=== PATIENT | male | born 1980 | race Caucasian/White ===

== ENCOUNTER 2019-03-29 11:03 | Inpatient (IN) | payer OTHER ==
[2019-03-29 11:28] VITALS: BMI 25.6
--- NOTE | 2019-03-29 12:37 | HP ---
COWS - Scale Resting Pulse: 0= ID 80 or Below Sweatin=Flushed/Facial Moisture Restless Observation: 0= Sits Still Pupil Size: 0= Normal to Room Light Bone or Joint Aches: 2= Severe Diffuse Aches Runny Nose/ Eye Tearin= Nasal Congestion GI Upset > 30mins: 1= Stomach Cramp Tremor Observation: 1= Tremor [place], Not Seen Yawning Observation: 0= None Anxiety or Irritability: 1=Feels Anxious/Irritable Goose Flesh Skin: 0=Smooth Skin COWS Score: 8 CIWA Score - Admission Criteria OASAS Guidelines: Admission for Medically Managed Detox: Requires at least one of the followin. CIWA greater than 12 2. Seizures within the past 24 hours 3. Delirium tremens within the past 24 hours 4. Hallucinations within the past 24 hours 5. Acute intervention needed for co occurring medical disorder 6. Acute intervention needed for co occurring psychiatric disorder 7. Severe withdrawal that cannot be handled at a lower level of care (continued vomiting, continued diarrhea, abnormal vital signs) requiring intravenous medication and/or fluids 8. Admission ROS [facility] Chief Complaint: Nba Waggoner is a 38 year old male presenting for heroin and cocaine detox. Allergies/Adverse Reactions: Allergies Allergy/AdvReac Type Severity Reaction Status Date / Time No Known Allergies Allergy Verified 03/29/19 11:16 History of Present Illness: Nba Waggoner is a 38 year old male presenting for heroin and cocaine detox. Heroin: uses 4 bags a day. Use everyday. Last use was yesterday. Had been using for 2 years, no prior opiate use as per patient. Endorses IVDU. Has had previous abscess on the R forearm that was lanced and treated at [facility], currently on Bactrim, day 2. Had been on methadone program through [facility] for 1 week, 30mg dose. Last confirmed dose was 03/19. Did not wait for appointment to increase dose and started using heroin again. Had one previous overdose and was taken to hospital and given Narcan. Has a Narcan kit at home and has knowledge of how to use it. Withdrawal symptoms: sick, diarrhea, chills , weakness. Cocaine: 1 gram per day. Last use 2 days ago. Has been using for 2 years. Started at the same time. Has never been to detox or rehab in the past. After detox: states may want to go to rehab. States would want to return to methadone maintenance program. Medical History: Hep C (active) Psychiatric: depression, anxiety, schizophrenia Surgical History: lancing of abscess under general anesthesia Meds: Abilify, Celexa, Alprazolam Smoking: former smoker Social: homeless, lives on street, unemployed. 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 Not in contact with family or friends. Last use was recent and not long enough for patient to be undergoing significant withdrawals. Admitted for expected severe withdrawal symptoms. Exam Limitations: No Limitations - Ebola screening Have you traveled outside of the country in the last 21 days: No (NN) Have you had contact with anyone from an Ebola affected area: No Do you have a fever: No - Review of Systems Constitutional: Chills, Diaphoresis, Loss of Appetite EENT: reports: Nose Congestion Respiratory: reports: No Symptoms reported Cardiac: reports: No Symptoms Reported GI: reports: No Symptoms Reported : reports: No Symptoms Reported Musculoskeletal: reports: No Symptoms Reported Integumentary: reports: Other (healing abscess on R forearm) Endocrine: reports: No Symptoms Reported Hematology: reports: No Symptoms Reported Psychiatric: reports: Judgement Intact, Orientated x3, Anxious Patient History - Patient Medical History Hx Anemia: No Hx Asthma: No Hx Chronic Obstructive Pulmonary Disease (COPD): No Hx Cancer: No Hx Cardiac Disorders: No Hx Congestive Heart Failure: No Hx Hypertension: No Hx Hypercholesterolemia: No Hx Pacemaker: No HX Cerebrovascular Accident: No Hx Seizures: No Hx Dementia: No Hx Diabetes: No Hx Gastrointestinal Disorders: No Hx Liver Disease: No Hx Genitourinary Disorders: No Hx Sexually Transmitted Disorders: No Hx Renal Disease (ESRD): No Hx Thyroid Disease: No Hx Human Immunodeficiency Virus (HIV): No Hx Hepatitis C: Yes (untreated) Hx Depression: Yes Hx Suicide Attempt: No Hx Bipolar Disorder: No Hx Schizophrenia: Yes - Patient Surgical History Hx Neurologic Surgery: No Hx Cataract Extraction: No Hx Cardiac Surgery: No Hx Lung Surgery: No Hx Breast Surgery: No Hx Breast Biopsy: No Hx Abdominal Surgery: No Hx Appendectomy: No Hx Cholecystectomy: No Hx Genitourinary Surgery: No Hx Section: No Hx Orthopedic Surgery: No Hx Hysterectomy: No Other Surgical History: lancing of abscess on R forearm under general anesthesia - PPD History Previous Implant?: No Implanted On Prior R Admission?: No PPD to be Administered?: Yes - Smoking Cessation Smoking history: Former smoker Have you smoked in the past 12 months: No Initiated information on smoking cessation: No - Substance & Tx. History Hx Alcohol Use: No Hx Substance Use: Yes Substance Use Type: Cocaine, Heroin - Substances abused Heroin Substance route: Injection Frequency: Daily Amount used: 3-4 bags Age of first use: 36 Date of last use: 03/29/19 Cocaine Substance route: Injection Frequency: Daily Amount used: 1 gram Date of last use: 03/27/19 Admission Physical Exam [facility] - Vital Signs Vital Signs: Vital Signs - 24 hr 03/29/19 11:20 Temperature 97.0 F L Pulse Rate 77 Respiratory 20 Rate Blood Pressure 142/88 - Physical General Appearance: Yes: Nourished, Disheveled, Mild Distress HEENTM: Yes: EOMI, Normocephalic, Normal Voice, DINORA, Pharynx Normal, Other ( strabismus noted) Respiratory: Yes: Chest Non-Tender, Lungs Clear, Normal Breath Sounds, No Respiratory Distress, No Accessory Muscle Use Neck: Yes: No masses,lesions,Nodules, Trachea in good position Breast: Yes: Breast Exam Deferred Cardiology: Yes: Regular Rhythm, Regular Rate, S1, S2 Abdominal: Yes: Normal Bowel Sounds, Non Tender, Flat, Soft Genitourinary: Yes: Within Normal Limits Back: Yes: Normal Inspection Musculoskeletal: Yes: full range of Motion, Gait Steady Extremities: Yes: Normal Capillary Refill, Normal Inspection, Normal Range of Motion, Non-Tender 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 intact, Fully Oriented, Alert, Motor Strength 5/5, Normal Response Integumentary: Yes: Dry, Warm, Track [place] (noted bilaterally on AC and hand), Other (Noted lanced abscess on R forearm, mild pain to palpation, no expression of fluid, healing) - Diagnostic (1) Heroin abuse Current Visit: Yes Status: Acute (2) Cocaine abuse Current Visit: Yes Status: Acute (3) IVDU (intravenous drug user) Current Visit: Yes Status: Acute (4) Hepatitis C Current Visit: Yes Status: Acute (5) Abscess of forearm, right Current Visit: Yes Status: Acute (6) Methadone use Current Visit: Yes Status: Acute Cleared for Admission [facility] - Detox or Rehab [facility] Level of Care: Medically Managed Detox Regimen/Protocol: Methadone Breathalyzer - Breathalyzer Breathalyzer: 0 Urine Drug Screen - Test Device Lot number: [id number] Expiration date: 11/25/20 - Control Is test valid?: Yes - Results Drug screen NEGATIVE: No Urine drug screen results: EDGARDO-Cocaine, MTD-Methadone Inpatient Rehab Admission - Rehab Decision to Admit Inpatient rehab admission?: No
[2019-03-29] MEDS ORDERED: cloNIDine HCL 0.1 MG TABLET PO PRN (13:38)
[2019-03-29] MEDS ORDERED: BISMUTH SUBSALICYLATE 262 MG/15 ML BTL PO PRN (13:38)
[2019-03-29] MEDS ORDERED: MENTHOL/PHENOL 1 EACH UD MM PRN (13:38)
[2019-03-29] MEDS ORDERED: IBUPROFEN 400 MG TABLET (FP) PO PRN ×2 (13:38)
[2019-03-29] MEDS ORDERED: MAGNESIUM CITRATE 300 ML BOTTLE PO PRN (13:38)
[2019-03-29] MEDS ORDERED: MAGNESIUM HYDROX 2400MG/30ML ORAL SUSPENSION 30 ML CUP PO PRN (13:38)
--- NOTE | 2019-03-29 14:46 | PN ---
Teaching Attending Note Name of Resident: David Palomo ATTENDING PHYSICIAN STATEMENT I saw and evaluated the patient. I reviewed the resident's note and discussed the case with the resident. I agree with the resident's findings and plan as documented. SUBJECTIVE: 38 yo with long h/o OUD, with recent IV heroin use, hospitalized for several days for abscess of arm- drained and is on antibiotics. was in a methadone program OBJECTIVE: Vital Signs - 24 hr 03/29/19 11:20 Temperature 97.0 F L Pulse Rate 77 Respiratory 20 Rate Blood Pressure 142/88 tremulous ASSESSMENT AND PLAN: OUD- admit for detox with methadone, pt will need assisted treatment in with MAT
[2019-03-29] MEDS ORDERED: METHADONE HCL 10 MG TABLET (FOR DETOX USE ONLY) PO ONE (15:10)
[2019-03-29 16:55] LABS: HEMATOCRIT 37.9 % (35.4-49); HEMOGLOBIN 12.5 GM/dL (11.7-16.9); MCH 28.4 pg (25.7-33.7); MEAN CELL VOLUME 86.1 fl (80-96); MEAN PLT VOLUME 8.1 fl (7.5-11.1); PLATELET COUNT 389 K/MM3 (134-434); RBC 4.41 M/mm3 (4.00-5.60); RDW 15.8 % (11.9-15.9); WHITE BLOOD COUNT 7.9 K/mm3 (4.0-10.0)
[2019-03-29] MEDS: SULFAMETHOXAZOLE/TRIMETHOPRIM 800MG/160MG D.S. TABLET PO SCH ×2 (17:06→21:57)
[2019-03-29 17:12] LABS: ALBUMIN 3.7 g/dl (3.4-5.0); BLOOD UREA NITROGEN 20.2 mg/dL (7-18); CALCIUM 9.1 mg/dL (8.5-10.1); CREATININE 1.1 mg/dL (0.55-1.3); POTASSIUM 4.9 mmol/L (3.5-5.1); TOT PROT 9.1 g/dl (6.4-8.2)
[2019-03-29 18:18] LABS: SICKLE CELL SCREEN NEGATIVE (NEGATIVE)
[2019-03-29] MEDS: hydrOXYzine PAMOATE 25 MG CAPSULE (FP) PO PRN (21:57)
[2019-03-29] MEDS: THIAMINE HCL 100 MG TABLET (FP) PO SCH (21:57)
[2019-03-29] MEDS: MELATONIN 5 MG TABLETS PO PRN (21:57)
[2019-03-30] MEDS: SULFAMETHOXAZOLE/TRIMETHOPRIM 800MG/160MG D.S. TABLET PO SCH ×3 (05:49→21:56)
[2019-03-30] MEDS: LACTOBACILLUS ACIDOPHILUS 1 TABLET PO SCH (06:23)
[2019-03-30] MEDS ORDERED: METHADONE HCL 10 MG TABLET (FOR DETOX USE ONLY) ONE (08:39)
[2019-03-30] MEDS ORDERED: METHADONE HCL 5 MG TABLET (FOR DETOX USE ONLY) ONE (08:39)
[2019-03-30] MEDS ORDERED: METHADONE (DETOX) 20 MG, METHADONE (DETOX) 5 MG PO ONE (10:00)
[2019-03-30] MEDS: PRENATAL VITAMINS W/ FOLIC ACID TABLET (FP) PO SCH (10:29)
[2019-03-30] MEDS: METHOCARBAMOL 500 MG TABLET PO PRN ×2 (10:30→21:56)
--- NOTE | 2019-03-30 11:42 | CONSULT ---
[facility] Psychiatric Consult - Data Date of interview: 03/30/19 Admission source: [facility] Identifying data: Patient is a 38 year old single male, father of two, unemployed, homeless, and is not receiving financial assistance. This is patient 's first admission to detox at [facility]. Patient admitted to for methadone dependence. Substance Abuse History: - Substance & Tx. History. Hx Alcohol Use: No. Hx Substance Use: Yes. Substance Use Type: Cocaine, Heroin. - Substances abused. Heroin. Substance route: Injection. Frequency: Daily. Amount used: 3-4 bags. Age of first use: 36. Date of last use: 03/29/19. Cocaine. Substance route: Injection. Frequency: Daily. Amount used: 1 gram. Date of last use: 03/27/19 Medical History: Hep C Psychiatric History: Patient's first psychiatric hospitalization was in [place] at 14 years of age after experiencing onset disturbances of auditory/ visual hallucinations. Patient was diagnosed with schizophrenia and treated with psychotropic medications. Mr. Waggoner reports history of cutting which started at 15 years of age after his brother was murdered and he became severely depressed. Patient reports seeing Dr. Kinney throughout his years of psychiatric outpatient care while living in [place] and reports being prescribed abilify 30mg + Celexa 10mg + Xanax 2mg daily. Mr. Waggoner reports additional diagnosis of Depression and personality disorder. Patient then moved to [place] 6 years ago and was continued on abilify 30mg + Celexa 10mg + Xanax 2mg HS. Mr. Waggoner has been living in [facility] for approximately two months. States that he lost his bag which had his psychtropic medications but was resumed on his psychtropic medications while at [facility] for ten days secondary to an abscess to his right forearm. Patient reports last taking his medications yesterday morning. States that he is scheduled to see a psychiatrist at the [facility] on 04/16/19. Patient reports history of self mutilation by cutting but denies a history of suicide attempt. Mr. Waggoner denies auditory/visual hallucinations, suicidal/homicidal ideation. At present he reports stable mood. Physical/Sexual Abuse/Trauma History: denies. Mental Status Exam - Mental Status Exam Alert and Oriented to: Time, Place, Person Cognitive Function: Good Patient Appearance: Well Groomed Mood: Euthymic Affect: Mood Congruent Patient Behavior: Cooperative Speech Pattern: Appropriate Voice Loudness: Normal Thought Process: Goal Oriented Thought Disorder: Not Present Hallucinations: Denies Suicidal Ideation: Denies Homicidal Ideation: Denies Insight/Judgement: Poor Sleep: Poorly Appetite: Fair Muscle strength/Tone: Normal Gait/Station: Normal Psychiatric Findings - Problem List ([place] 1, 2,3) (1) Schizophrenia Status: Chronic (2) Cocaine abuse Status: Acute (3) Heroin abuse Status: Acute (4) Methadone use Status: Acute (5) Substance-induced sleep disorder Status: Acute - Initial Treatment Plan Initial Treatment Plan: Psychoeducation provided. Detoxification in progress. Will order abilify 30mg + Celexa 10mg daily + Benadryl 50mg HS PRN for insomnia. Benefits and side effects discussed. Verbal consent given.
[2019-03-30] MEDS ORDERED: FLU VACCINE QUAD 60 MCG/0.5 ML (MDV 19-20) IM ONE (12:00)
--- NOTE | 2019-03-30 14:29 | EKG ---
Test Reason : Blood Pressure : / mmHG Vent. Rate : 081 BPM Atrial Rate : 081 BPM P-R Int : 154 ms QRS Dur : 090 ms QT Int : 400 ms P-R-T Axes : 043 052 047 degrees QTc Int : 464 ms NORMAL SINUS RHYTHM NORMAL ECG NO PREVIOUS ECGS AVAILABLE Confirmed by BRITTNI RIVERO MD ([id number]) on 03/30/2019 2:29:08 PM Referred By: Confirmed By:BRITTNI RIVERO MD
--- NOTE | 2019-03-30 16:39 | PN ---
BHS COWS - Scale Resting Pulse: 1= [place] 81-100 Sweatin= Chills/Flushing Restless Observation: 1= Difficult to Sit Still Pupil Size: 0= Normal to Room Light Bone or Joint Aches: 2= Severe Diffuse Aches Runny Nose/ Eye Tearin= None GI Upset > 30mins: 0= None Tremor Observation of Outstretched Hands: 2= Slight Tremor Visible Yawning Observation: 1= 1-2x During Session Anxiety or Irritability: 2=Irritable/Anxious Goose Flesh Skin: 3=Piloerection COWS Score: 13 BHS Progress Note (SOAP) Subjective: Sweating, Tremors, Body Aches. Objective: PATIENT A & O X 3, OBSERVED AMBULATING ON DETOX UNIT UNASSISTED. IN NO ACUTE DISTRESS. 03/30/19 16:38 Vital Signs Temperature 97.0 F L 03/30/19 13:10 Pulse Rate 81 03/30/19 13:10 Respiratory Rate 18 03/30/19 13:10 Blood Pressure 106/72 03/30/19 13:10 O2 Sat by Pulse Oximetry (%) Laboratory Tests 03/29/19 03/29/19 03/29/19 14:45 14:45 14:45 WBC 7.9 RBC 4.41 Hgb 12.5 Hct 37.9 MCV 86.1 MCH 28.4 MCHC 33.0 RDW 15.8 Plt Count 389 MPV 8.1 Sickle Cell Screen Negative Sodium 136 Potassium 4.9 Chloride 102 Carbon Dioxide 30 Anion Gap 5 L BUN 20.2 H Creatinine 1.1 Est GFR (CKD-EPI)AfAm 98.18 Est GFR (CKD-EPI)NonAf 84.71 Random Glucose 103 Calcium 9.1 Total Bilirubin 1.0 AST 42 H ALT 54 Alkaline Phosphatase 73 Total Protein 9.1 H Albumin 3.7 RPR Titer Nonreactive LABS NOTED. Assessment: 03/30/19 16:39 WITHDRAWAL SYMPTOMS. ELEVATED AST LEVEL. Plan: CONTINUE DETOX.
[2019-03-30] MEDS ORDERED: diphenhydrAMINE HCL 25 MG CAPSULE (FP) PO ONE (21:23)
[2019-03-30] MEDS: THIAMINE HCL 100 MG TABLET (FP) PO SCH (21:56)
[2019-03-30] MEDS: diphenhydrAMINE HCL 50 MG CAPSULE PO PRN (21:57)
[2019-03-30] MEDS: MAG HYDROX/AL HYDROX/SIMETH 30 ML UNIT-DOSE CUP PO PRN (21:57)
[2019-03-31] MEDS: SULFAMETHOXAZOLE/TRIMETHOPRIM 800MG/160MG D.S. TABLET PO SCH ×3 (05:53→21:07)
[2019-03-31] MEDS: LACTOBACILLUS ACIDOPHILUS 1 TABLET PO SCH (07:49)
[2019-03-31] MEDS ORDERED: METHADONE HCL 10 MG TABLET (FOR DETOX USE ONLY) PO ONE (10:00)
[2019-03-31] MEDS: ARIPiprazole 15 MG TABLET PO SCH (10:15)
[2019-03-31] MEDS: PRENATAL VITAMINS W/ FOLIC ACID TABLET (FP) PO SCH (10:15)
[2019-03-31] MEDS: CITALOPRAM HYDROBROMIDE 10 MG TABLET (FP) PO SCH (10:15)
[2019-03-31] MEDS: MAG HYDROX/AL HYDROX/SIMETH 30 ML UNIT-DOSE CUP PO PRN ×2 (10:17→21:09)
[2019-03-31] MEDS: LIDOCAINE 5% TOPICAL PATCH TP SCH (14:50)
--- NOTE | 2019-03-31 17:58 | PN ---
BHS COWS - Scale Resting Pulse: 1= [place] 81-100 Sweatin= Chills/Flushing Restless Observation: 0= Sits Still Pupil Size: 0= Normal to Room Light Bone or Joint Aches: 2= Severe Diffuse Aches Runny Nose/ Eye Tearin= None GI Upset > 30mins: 0= None Tremor Observation of Outstretched Hands: 2= Slight Tremor Visible Yawning Observation: 1= 1-2x During Session Anxiety or Irritability: 2=Irritable/Anxious Goose Flesh Skin: 0=Smooth Skin COWS Score: 9 BHS Progress Note (SOAP) Subjective: Tremors, Sweating, Body Aches. Objective: PATIENT A & O X 3. IN NO ACUTE DISTRESS. 03/31/19 17:56 Vital Signs Temperature 98.3 F 03/31/19 17:15 Pulse Rate 85 03/31/19 17:15 Respiratory Rate 18 03/31/19 17:15 Blood Pressure 103/65 03/31/19 17:15 O2 Sat by Pulse Oximetry (%) Laboratory Tests 03/29/19 03/29/19 03/29/19 14:45 14:45 14:45 WBC 7.9 RBC 4.41 Hgb 12.5 Hct 37.9 MCV 86.1 MCH 28.4 MCHC 33.0 RDW 15.8 Plt Count 389 MPV 8.1 Sickle Cell Screen Negative Sodium 136 Potassium 4.9 Chloride 102 Carbon Dioxide 30 Anion Gap 5 L BUN 20.2 H Creatinine 1.1 Est GFR (CKD-EPI)AfAm 98.18 Est GFR (CKD-EPI)NonAf 84.71 Random Glucose 103 Calcium 9.1 Total Bilirubin 1.0 AST 42 H ALT 54 Alkaline Phosphatase 73 Total Protein 9.1 H Albumin 3.7 RPR Titer Nonreactive LABS NOTED. Assessment: 03/31/19 17:57 WITHDRAWAL SYMPTOMS. ELEVATED AST LEVEL. Plan: CONTINUE DETOX. INCREASE DAILY PO WATER INTAKE. LIDODERM PATCH FOR LOWER BACK PAIN.
[2019-03-31] MEDS ORDERED: diphenhydrAMINE HCL 25 MG CAPSULE (FP) PO ONE (20:44)
[2019-03-31] MEDS: LIDOCAINE PATCH REMOVAL MC SCH (21:07)
[2019-03-31] MEDS: THIAMINE HCL 100 MG TABLET (FP) PO SCH (21:07)
[2019-03-31] MEDS: diphenhydrAMINE HCL 50 MG CAPSULE PO PRN (21:08)
[2019-04-01] MEDS: SULFAMETHOXAZOLE/TRIMETHOPRIM 800MG/160MG D.S. TABLET PO SCH ×3 (06:41→22:05)
[2019-04-01] MEDS: LACTOBACILLUS ACIDOPHILUS 1 TABLET PO SCH (07:40)
[2019-04-01] MEDS ORDERED: METHADONE HCL 10 MG TABLET (FOR DETOX USE ONLY) ONE (08:27)
[2019-04-01] MEDS ORDERED: METHADONE HCL 5 MG TABLET (FOR DETOX USE ONLY) ONE (08:28)
[2019-04-01] MEDS ORDERED: METHADONE (DETOX) 10 MG, METHADONE (DETOX) 5 MG PO ONE (10:00)
[2019-04-01] MEDS: ARIPiprazole 15 MG TABLET PO SCH (10:32)
[2019-04-01] MEDS: CITALOPRAM HYDROBROMIDE 10 MG TABLET (FP) PO SCH (10:32)
[2019-04-01] MEDS: PRENATAL VITAMINS W/ FOLIC ACID TABLET (FP) PO SCH (10:32)
[2019-04-01] MEDS: METHOCARBAMOL 500 MG TABLET PO PRN ×2 (10:32→23:18)
[2019-04-01] MEDS: LIDOCAINE 5% TOPICAL PATCH TP SCH (10:34)
--- NOTE | 2019-04-01 16:43 | PN ---
BHS COWS - Scale Resting Pulse: 1= [place] 81-100 Sweatin= Chills/Flushing Restless Observation: 1= Difficult to Sit Still Pupil Size: 0= Normal to Room Light Bone or Joint Aches: 2= Severe Diffuse Aches Runny Nose/ Eye Tearin= None GI Upset > 30mins: 0= None Tremor Observation of Outstretched Hands: 0= None Yawning Observation: 1= 1-2x During Session Anxiety or Irritability: 2=Irritable/Anxious Goose Flesh Skin: 0=Smooth Skin COWS Score: 8 BHS Progress Note (SOAP) Subjective: Sweating, Body Aches. Patient reports That Current withdrawal Detox Symptoms in General Are Subsiding in Severity and that he is feeling better. Objective: PATIENT A & O X 3, OBSERVED AMBULATING ON DETOX UNIT UNASSISTED. IN NO ACUTE DISTRESS. 04/01/19 16:44 Vital Signs Temperature 97.0 F L 04/01/19 13:40 Pulse Rate 91 H 04/01/19 13:40 Respiratory Rate 20 04/01/19 13:40 Blood Pressure 95/71 04/01/19 13:40 O2 Sat by Pulse Oximetry (%) Laboratory Tests 03/29/19 03/29/19 03/29/19 14:45 14:45 14:45 WBC 7.9 RBC 4.41 Hgb 12.5 Hct 37.9 MCV 86.1 MCH 28.4 MCHC 33.0 RDW 15.8 Plt Count 389 MPV 8.1 Sickle Cell Screen Negative Sodium 136 Potassium 4.9 Chloride 102 Carbon Dioxide 30 Anion Gap 5 L BUN 20.2 H Creatinine 1.1 Est GFR (CKD-EPI)AfAm 98.18 Est GFR (CKD-EPI)NonAf 84.71 Random Glucose 103 Calcium 9.1 Total Bilirubin 1.0 AST 42 H ALT 54 Alkaline Phosphatase 73 Total Protein 9.1 H Albumin 3.7 RPR Titer Nonreactive LABS NOTED. PATIENT REPORTS THAT DISCOMFORT AT SITE OF WOUND ON RIGHT ARM IS MINIMAL AT THIS TIME. 04/01/19 16:47 Assessment: 04/01/19 16:44 WITHDRAWAL SYMPTOMS. ELEVATED AST LEVEL. 04/01/19 16:45 Plan: CONTINUE DETOX.
[2019-04-01] MEDS ORDERED: diphenhydrAMINE HCL 25 MG CAPSULE (FP) PO ONE (21:16)
[2019-04-01] MEDS: THIAMINE HCL 100 MG TABLET (FP) PO SCH (22:05)
[2019-04-01] MEDS: diphenhydrAMINE HCL 50 MG CAPSULE PO PRN (22:05)
[2019-04-01] MEDS: LIDOCAINE PATCH REMOVAL MC SCH (22:06)
[2019-04-01] MEDS: MAG HYDROX/AL HYDROX/SIMETH 30 ML UNIT-DOSE CUP PO PRN (22:18)
[2019-04-01] MEDS: MELATONIN 5 MG TABLETS PO PRN (23:18)
[2019-04-01] MEDS: hydrOXYzine PAMOATE 25 MG CAPSULE (FP) PO PRN (23:18)
[2019-04-02] MEDS: SULFAMETHOXAZOLE/TRIMETHOPRIM 800MG/160MG D.S. TABLET PO SCH ×3 (05:17→22:13)
[2019-04-02] MEDS: LACTOBACILLUS ACIDOPHILUS 1 TABLET PO SCH (06:27)
[2019-04-02] MEDS ORDERED: METHADONE HCL 10 MG TABLET (FOR DETOX USE ONLY) PO ONE (10:00)
[2019-04-02] MEDS: PRENATAL VITAMINS W/ FOLIC ACID TABLET (FP) PO SCH (10:20)
[2019-04-02] MEDS: CITALOPRAM HYDROBROMIDE 10 MG TABLET (FP) PO SCH (10:20)
[2019-04-02] MEDS: ARIPiprazole 15 MG TABLET PO SCH (10:20)
[2019-04-02] MEDS: LIDOCAINE 5% TOPICAL PATCH TP SCH (10:21)
[2019-04-02] MEDS: METHOCARBAMOL 500 MG TABLET PO PRN ×2 (10:22→22:14)
--- NOTE | 2019-04-02 11:50 | PN ---
BHS COWS - Scale Resting Pulse: 1= [place] 81-100 Sweatin= Chills/Flushing Restless Observation: 0= Sits Still Pupil Size: 0= Normal to Room Light Bone or Joint Aches: 1= Mild Discomfort Runny Nose/ Eye Tearin= None GI Upset > 30mins: 0= None Tremor Observation of Outstretched Hands: 1= Tremor [place], Not Seen Yawning Observation: 0= None Anxiety or Irritability: 1=Feels Anxious/Irritable Goose Flesh Skin: 0=Smooth Skin COWS Score: 5 BHS Progress Note (SOAP) Subjective: doing well with methadone detox regimen seen by psychiatrist treated with abilify celexa and benadryl tolerated well patient considers to go to medication assisted treatment program as aftercare Objective: 04/02/19 11:49 Vital Signs Temperature 97.6 F 04/02/19 09:28 Pulse Rate 88 04/02/19 09:28 Respiratory Rate 18 04/02/19 09:28 Blood Pressure 111/70 04/02/19 09:28 O2 Sat by Pulse Oximetry (%) Laboratory Last Values WBC 7.9 K/mm3 (4.0-10.0) 03/29/19 14:45 RBC 4.41 M/mm3 (4.00-5.60) 03/29/19 14:45 Hgb 12.5 GM/dL (11.7-16.9) 03/29/19 14:45 Hct 37.9 % (35.4-49) 03/29/19 14:45 MCV 86.1 fl (80-96) 03/29/19 14:45 MCH 28.4 pg (25.7-33.7) 03/29/19 14:45 MCHC 33.0 g/dl (32.0-35.9) 03/29/19 14:45 RDW 15.8 % (11.9-15.9) 03/29/19 14:45 Plt Count 389 K/MM3 (134-434) 03/29/19 14:45 MPV 8.1 fl (7.5-11.1) 03/29/19 14:45 Sickle Cell Screen Negative (NEGATIVE) 03/29/19 14:45 Sodium 136 mmol/L (136-145) 03/29/19 14:45 Potassium 4.9 mmol/L (3.5-5.1) 03/29/19 14:45 Chloride 102 mmol/L (98-107) 03/29/19 14:45 Carbon Dioxide 30 mmol/L (21-32) 03/29/19 14:45 Anion Gap 5 MMOL/L (8-16) L 03/29/19 14:45 BUN 20.2 mg/dL (7-18) H 03/29/19 14:45 Creatinine 1.1 mg/dL (0.55-1.3) 03/29/19 14:45 Est GFR (CKD-EPI)AfAm 98.18 03/29/19 14:45 Est GFR (CKD-EPI)NonAf 84.71 03/29/19 14:45 Random Glucose 103 mg/dL (74-106) 03/29/19 14:45 Calcium 9.1 mg/dL (8.5-10.1) 03/29/19 14:45 Total Bilirubin 1.0 mg/dL (0.2-1) 03/29/19 14:45 AST 42 U/L (15-37) H 03/29/19 14:45 ALT 54 U/L (13-61) 03/29/19 14:45 Alkaline Phosphatase 73 U/L (45-117) 03/29/19 14:45 Total Protein 9.1 g/dl (6.4-8.2) H 03/29/19 14:45 Albumin 3.7 g/dl (3.4-5.0) 03/29/19 14:45 RPR Titer Nonreactive (NONREACTIVE) 03/29/19 14:45 lab noted Assessment: 04/02/19 11:49 opiate withdrawal sx Plan: continue 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
[2019-04-02] MEDS: MAG HYDROX/AL HYDROX/SIMETH 30 ML UNIT-DOSE CUP PO PRN (17:41)
[2019-04-02] MEDS: MELATONIN 5 MG TABLETS PO PRN (22:13)
[2019-04-02] MEDS: THIAMINE HCL 100 MG TABLET (FP) PO SCH (22:13)
[2019-04-02] MEDS: LIDOCAINE PATCH REMOVAL MC SCH (22:13)
[2019-04-02] MEDS: diphenhydrAMINE HCL 50 MG CAPSULE PO PRN (22:15)
[2019-04-03] MEDS ORDERED: METHADONE HCL 5 MG TABLET (FOR DETOX USE ONLY) PO ONE (06:00)
[2019-04-03] MEDS: SULFAMETHOXAZOLE/TRIMETHOPRIM 800MG/160MG D.S. TABLET PO SCH (06:19)
[2019-04-03] MEDS: LACTOBACILLUS ACIDOPHILUS 1 TABLET PO SCH (06:19)
[2019-04-03 07:38] VITALS: BP 98/62; PULSE 70; TEMP 97
--- NOTE | 2019-04-03 11:38 | DS ---
[facility] Detox Discharge Summary Admission Date: 03/29/19 Discharge Date: 04/03/19 - History Present History: Opioid Dependence Additional Comments: did well with methadone detox regimen no complication through out the detox regimen seen by psychiatrist treated with abilify celexa and benadryl patient tolerate well patient is alert oriented x 3 cardiac S1S2 RRR respiratory clear lung sound bilaterally on auscultation abdomen soft no rebound tenderness - Physical Exam Results Vital Signs: Vital Signs Temperature 97.0 F L 04/03/19 07:36 Pulse Rate 70 04/03/19 07:36 Respiratory Rate 18 04/03/19 07:36 Blood Pressure 98/62 04/03/19 07:36 O2 Sat by Pulse Oximetry (%) Pertinent Admission Physical Exam Findings: opiate withdrawal sx Laboratory Last Values WBC 7.9 K/mm3 (4.0-10.0) 03/29/19 14:45 RBC 4.41 M/mm3 (4.00-5.60) 03/29/19 14:45 Hgb 12.5 GM/dL (11.7-16.9) 03/29/19 14:45 Hct 37.9 % (35.4-49) 03/29/19 14:45 MCV 86.1 fl (80-96) 03/29/19 14:45 MCH 28.4 pg (25.7-33.7) 03/29/19 14:45 MCHC 33.0 g/dl (32.0-35.9) 03/29/19 14:45 RDW 15.8 % (11.9-15.9) 03/29/19 14:45 Plt Count 389 K/MM3 (134-434) 03/29/19 14:45 MPV 8.1 fl (7.5-11.1) 03/29/19 14:45 Sickle Cell Screen Negative (NEGATIVE) 03/29/19 14:45 Sodium 136 mmol/L (136-145) 03/29/19 14:45 Potassium 4.9 mmol/L (3.5-5.1) 03/29/19 14:45 Chloride 102 mmol/L (98-107) 03/29/19 14:45 Carbon Dioxide 30 mmol/L (21-32) 03/29/19 14:45 Anion Gap 5 MMOL/L (8-16) L 03/29/19 14:45 BUN 20.2 mg/dL (7-18) H 03/29/19 14:45 Creatinine 1.1 mg/dL (0.55-1.3) 03/29/19 14:45 Est GFR (CKD-EPI)AfAm 98.18 03/29/19 14:45 Est GFR (CKD-EPI)NonAf 84.71 03/29/19 14:45 Random Glucose 103 mg/dL (74-106) 03/29/19 14:45 Calcium 9.1 mg/dL (8.5-10.1) 03/29/19 14:45 Total Bilirubin 1.0 mg/dL (0.2-1) 03/29/19 14:45 AST 42 U/L (15-37) H 03/29/19 14:45 ALT 54 U/L (13-61) 03/29/19 14:45 Alkaline Phosphatase 73 U/L (45-117) 03/29/19 14:45 Total Protein 9.1 g/dl (6.4-8.2) H 03/29/19 14:45 Albumin 3.7 g/dl (3.4-5.0) 03/29/19 14:45 RPR Titer Nonreactive (NONREACTIVE) 03/29/19 14:45 lab noted - Treatment Hospital Course: Detox Protocol Followed, Detoxed Safely, Responded well, Discharged Condition Good, Rehab Referral Accepted Patient has Accepted a Rehab Referral to: [facility] methad[facility] assisted treatment program - Medication Discharge Medications: Ambulatory Orders Aripiprazole [Abilify -] 30 mg PO DAILY 03/29/19 Citalopram Hydrobromide [Celexa -] 10 mg PO DAILY 03/29/19 Sulfamethoxazole/Trimethoprim [Bactrim DS -] 1 tab PO TID 03/29/19 Sulfamethoxazole/Trimethoprim [Bactrim Ds -] 1 tab PO BID 5 Days #10 tablet 11/13 Naloxone HCl [Narcan] 4 mg NS ASDIR PRN #1 spray 04/02/19 - Diagnosis (1) Substance induced mood disorder Status: Suspected (2) Opioid dependence, uncomplicated Status: Acute (3) Hepatitis C Status: Chronic Qualifiers: Viral hepatitis chronicity: carrier Qualified Code(s): B18.2 - Chronic viral hepatitis C - AMA Did Patient Leave Against Medical Advice: No COWS (PN) - Opiate Withdrawal Resting Pulse: 0= [place] 80 or Below Sweatin= No chills or Flushing Restless Observation: 0= Sits Still Pupil Size: 0= Normal to Room Light Bone or Joint Aches: 1= Mild Discomfort Runny Nose/ Eye Tearin= None GI Upset > 30mins: 0= None Tremor Observation of Outstretched Hands: 0= None Yawning Observation: 0= None Anxiety or Irritability: 1=Feels Anxious/Irritable Goose Flesh Skin: 0=Smooth Skin COWS Score: 2
[2019-04-03] MEDS ORDERED: MIDAZOLAM HCL 2 MG/2 ML SINGLE DOSE VIAL ONE (11:55)
== END 2019-04-03 11:03 | disposition home or self-care (01) | DRG 773 ==
LOC: YASAS 11:03 → Y3N 14:51
PROVIDERS: ADMIT Surgery; ATTEND Surgery
PROC: HZ2ZZZZ Detoxification Services for Substance Abuse Treatment (ICD-10-PCS; principal; 2019-03-29)
DX: F11.23 Opioid dependence with withdrawal (principal); F14.10 Cocaine abuse, uncomplicated; F19.282 Other psychoactive substance dependence with psychoactive substance-induced sleep disorder; F19.24 Other psychoactive substance dependence with psychoactive substance-induced mood disorder; F20.9 Schizophrenia, unspecified; F41.8 Other specified anxiety disorders; F32.9 Major depressive disorder, single episode, unspecified; B18.2 Chronic viral hepatitis C; R94.5 Abnormal results of liver function studies; Z59.0 Homelessness; Z79.2 Long term (current) use of antibiotics
CPT/HCPCS: 36415; 80053; 85027; 85660; 86593; 93005; 93010

== ENCOUNTER 2019-04-06 09:57 | Inpatient (IN) | payer OTHER ==
[2019-04-06 11:39] VITALS: BMI 25.4
--- NOTE | 2019-04-06 12:44 | HP ---
COWS - Scale Resting Pulse: 1= [place] 81-100 Sweatin= Chills/Flushing Restless Observation: 0= Sits Still Pupil Size: 1= Pupils >than Normal Bone or Joint Aches: 2= Severe Diffuse Aches Runny Nose/ Eye Tearin= Nasal Congestion GI Upset > 30mins: 1= Stomach Cramp Tremor Observation: 1= Tremor [place], Not Seen Yawning Observation: 0= None Anxiety or Irritability: 1=Feels Anxious/Irritable Goose Flesh Skin: 0=Smooth Skin COWS Score: 9 CIWA Score - Admission Criteria OASAS Guidelines: Admission for Medically Managed Detox: Requires at least one of the followin. CIWA greater than 12 2. Seizures within the past 24 hours 3. Delirium tremens within the past 24 hours 4. Hallucinations within the past 24 hours 5. Acute intervention needed for co occurring medical disorder 6. Acute intervention needed for co occurring psychiatric disorder 7. Severe withdrawal that cannot be handled at a lower level of care (continued vomiting, continued diarrhea, abnormal vital signs) requiring intravenous medication and/or fluids 8. Admitting History and Physical - Smoking History Smoking history: Former smoker Have you smoked in the past 12 months: No - Alcohol/Substance Use Hx Alcohol Use: No Admission ROS S - HPI Chief Complaint: Nba Waggoner is a 38 year old male presenting for heroin abuse. Allergies/Adverse Reactions: Allergies Allergy/AdvReac Type Severity Reaction Status Date / Time No Known Allergies Allergy Verified 04/06/19 11:28 History of Present Illness: Nba Waggoner is a 38 year old male presenting for heroin abuse. Heroin: recently completed detox on 04/03. After detox left and did not go to rehab or [facility] methadone program. Stated has been using 1 bag IVDU. During one episode of IVDU a portion of the needle broke off and is currently lodged in his skin. Has had overdoses in the past, not since his discharge from detox. Last use was less than 24 hours ago. Had been using for 2 years, no prior opiate use as per patient. Endorses IVDU. Has had previous abscess on the R forearm that was lanced and treated at [facility] and completed course of abx. Had been on methadone program through [facility] for 1 week, 30mg dose. Last confirmed dose was 03/19. Did not wait for appointment to increase dose and started using heroin again. Has a Narcan kit at home and has knowledge of how to use it. Withdrawal symptoms: sick, diarrhea, chills, weakness. Cocaine: 1 gram per day. Last use 1 day ago. Has been using for 2 years. Started at the same time. Has been to rehab at this facility. After detox: states wants to go to inpatient rehab after detox. Medical History: Hep C (active) Psychiatric: depression, anxiety, schizophrenia Surgical History: lancing of abscess under general anesthesia Meds: Abilify, Celexa, Alprazolam Smoking: former smoker Social: homeless, lives on street, unemployed. 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 Not in contact with family or friends. Utox: EDGARDO, FEN, MOP, MTD ODALYS: 0.000 Will be admitted for methadone detox and then subsequent rehab. Completed Bactrim for abscess. Was at [facility] for skin infection secondary to needle breaking off underneath the skin and started on Keflex. Will continue Keflex while admitted here. Expected withdrawal symptoms and IVDU. Exam Limitations: No Limitations - Ebola screening Have you traveled outside of the country in the last 21 days: No Have you had contact with anyone from an Ebola affected area: No Do you have a fever: No - Review of Systems Constitutional: Chills, Loss of Appetite, Changes in sleep EENT: reports: No Symptoms Reported Respiratory: reports: No Symptoms reported Cardiac: reports: No Symptoms Reported GI: reports: Diarrhea : reports: No Symptoms Reported Musculoskeletal: reports: Joint Pain, Muscle Pain Integumentary: reports: No Symptoms Reported Neuro: reports: No Symptoms reported Endocrine: reports: No Symptoms Reported Hematology: reports: No Symptoms Reported Psychiatric: reports: Agitated, Anxious Patient History - Patient Medical History Hx Anemia: No Hx Asthma: No Hx Chronic Obstructive Pulmonary Disease (COPD): No Hx Cancer: No Hx Cardiac Disorders: No Hx Congestive Heart Failure: No Hx Hypertension: No Hx Hypercholesterolemia: No Hx Pacemaker: No HX Cerebrovascular Accident: No Hx Seizures: No Hx Dementia: No Hx Diabetes: No Hx Gastrointestinal Disorders: No Hx Liver Disease: No Hx Genitourinary Disorders: No Hx Sexually Transmitted Disorders: No Hx Renal Disease (ESRD): No Hx Thyroid Disease: No Hx Human Immunodeficiency Virus (HIV): No Hx Hepatitis C: Yes (untreated) Hx Depression: Yes Hx Suicide Attempt: No Hx Bipolar Disorder: No Hx Schizophrenia: No - Patient Surgical History Past Surgical History: Yes Hx Neurologic Surgery: No Hx Cataract Extraction: No Hx Cardiac Surgery: No Hx Lung Surgery: No Hx Breast Surgery: No Hx Breast Biopsy: No Hx Abdominal Surgery: No Hx Appendectomy: No Hx Cholecystectomy: No Hx Genitourinary Surgery: No Hx Section: No Hx Orthopedic Surgery: No Hx Hysterectomy: No Other Surgical History: lancing of abscess on R forearm under general anesthesia - PPD History Previous Implant?: Yes Documented Results: Negative w/proof Implanted On Prior [facility] Admission?: Yes Date: 03/31/19 PPD to be Administered?: No - Smoking Cessation Smoking history: Former smoker Have you smoked in the past 12 months: No Initiated information on smoking cessation: Yes 'Breaking Loose' booklet given: 04/06/19 - Substances abused Heroin Substance route: Injection Frequency: Daily Amount used: 1bags Age of first use: 36 Date of last use: 04/05/19 Cocaine Substance route: Injection Frequency: 3-6 times per week Amount used: 1/2 gram Age of first use: 32 Date of last use: 04/04/19 Admission Physical Exam BHS - Vital Signs Vital Signs: Vital Signs - 24 hr 04/06/19 11:28 Temperature 97.0 F L Pulse Rate 81 Respiratory 18 Rate Blood Pressure 127/85 - Physical General Appearance: Yes: Disheveled, Mild Distress HEENTM: Yes: EOMI, Normocephalic, Normal Voice, DINORA, Pharynx Normal Respiratory: Yes: Chest Non-Tender, Lungs Clear, Normal Breath Sounds, No Respiratory Distress, No Accessory Muscle Use Neck: Yes: No masses,lesions,Nodules, Trachea in good position Breast: Yes: Breast Exam Deferred Cardiology: Yes: Regular Rhythm, Regular Rate, S1, S2 Abdominal: Yes: Normal Bowel Sounds, Non Tender, Flat, Soft Back: Yes: Normal Inspection Musculoskeletal: Yes: full range of Motion Extremities: Yes: Normal Capillary Refill, Normal Inspection, Normal Range of Motion, Non-Tender Neurological: Yes: fitness specialist II-XII NML intact, Alert, Motor Strength 5/5 Integumentary: Yes: Normal Color, Dry, Warm, Track [place] (noted on hands, AC, feet), Other (old scars from cutting noted) - Diagnostic (1) Abscess of forearm, right Current Visit: No Status: Acute (2) Cocaine abuse Current Visit: No Status: Acute (3) Heroin abuse Current Visit: No Status: Acute (4) IVDU (intravenous drug user) Current Visit: No Status: Acute (5) Methadone use Current Visit: No Status: Acute (6) Hepatitis C Current Visit: No Status: Chronic Qualifiers: Viral hepatitis chronicity: carrier Qualified Code(s): B18.2 - Chronic viral hepatitis C (7) Schizophrenia Current Visit: No Status: Chronic (8) Substance induced mood disorder Current Visit: No Status: Suspected Cleared for Admission [facility] - Detox or Rehab [facility] Level of Care: Medically Managed Detox Regimen/Protocol: Methadone Breathalyzer - Breathalyzer Breathalyzer: 0 Urine Drug Screen - Test Device Lot number: [id number] Expiration date: 11/25/20 - Control Is test valid?: Yes - Results Drug screen NEGATIVE: No Urine drug screen results: EDGARDO-Cocaine, FEN-Fentanyl, MOP-Opiates, MTD-Methadone Inpatient Rehab Admission - Rehab Decision to Admit Inpatient rehab admission?: No
[2019-04-06] MEDS ORDERED: cloNIDine HCL 0.1 MG TABLET PO PRN (13:01)
[2019-04-06] MEDS ORDERED: MAGNESIUM CITRATE 300 ML BOTTLE PO PRN (13:01)
[2019-04-06] MEDS ORDERED: ACETAMINOPHEN 325 MG TABLET (FP) PO PRN ×2 (13:01)
[2019-04-06] MEDS ORDERED: MENTHOL/PHENOL 1 EACH UD MM PRN (13:01)
[2019-04-06] MEDS ORDERED: IBUPROFEN 400 MG TABLET (FP) PO PRN (13:01)
[2019-04-06] MEDS ORDERED: MAGNESIUM HYDROX 2400MG/30ML ORAL SUSPENSION 30 ML CUP PO PRN (13:01)
[2019-04-06] MEDS ORDERED: hydrOXYzine PAMOATE 25 MG CAPSULE (FP) PO PRN (13:01)
[2019-04-06] MEDS ORDERED: METHADONE HCL 10 MG TABLET (FOR DETOX USE ONLY) PO ONE (13:01)
[2019-04-06] MEDS: CEPHALEXIN MONOHYDRATE 500 MG CAPSULE (UD) PO SCH ×2 (15:11→22:17)
[2019-04-06 17:47] LABS: HEMATOCRIT 34.6 % (35.4-49); HEMOGLOBIN 11.3 GM/dL (11.7-16.9); MCH 28.6 pg (25.7-33.7); MCHC 32.7 g/dl (32.0-35.9); MEAN CELL VOLUME 87.4 fl (80-96); MEAN PLT VOLUME 8.2 fl (7.5-11.1); PLATELET COUNT 309 K/MM3 (134-434); RBC 3.96 M/mm3 (4.00-5.60); RDW 16.5 % (11.9-15.9); WHITE BLOOD COUNT 5.9 K/mm3 (4.0-10.0)
[2019-04-06 18:04] LABS: ALBUMIN 3.4 g/dl (3.4-5.0); BILIRUBIN,TOTAL 0.4 mg/dL (0.2-1); BLOOD UREA NITROGEN 20.4 mg/dL (7-18); CALCIUM 8.5 mg/dL (8.5-10.1); POTASSIUM 4.5 mmol/L (3.5-5.1); TOT PROT 7.7 g/dl (6.4-8.2)
[2019-04-06] MEDS ORDERED: MELATONIN 5 MG TABLETS PO PRN (22:00)
[2019-04-06] MEDS: THIAMINE HCL 100 MG TABLET (FP) PO SCH (22:17)
[2019-04-06] MEDS: METHOCARBAMOL 500 MG TABLET PO PRN (22:17)
[2019-04-07] MEDS: CEPHALEXIN MONOHYDRATE 500 MG CAPSULE (UD) PO SCH ×3 (05:23→21:18)
[2019-04-07] MEDS: MAG HYDROX/AL HYDROX/SIMETH 30 ML UNIT-DOSE CUP PO PRN ×2 (05:24→12:48)
--- NOTE | 2019-04-07 07:41 | CONSULT ---
[facility] Psychiatric Consult - Data Date of interview: 04/07/19 Admission source: [facility] Identifying data: Mr Waggoner is a 38 years old single male, father of 2 children, unemployed, homeless seeking detox treatment for opioid and cocaine Substance Abuse History: Reports history of heroin and cocaine use. Refer to addiction counselor's summary for further information Medical History: Significant for hepatitis C, history of I&D abscess right arm Psychiatric History: Patient is known for one previous recent admission to this facility earlier this month. Reports that his first psychiatric hospitalization was in [place] at age 14 after experiencing auditory/visual hallucinations. Patient was diagnosed with schizophrenia and treated with psychotropic medications. Mr. Waggoner reports history of cutting which started at 15 years of age after his brother was murdered and he became severely depressed. Patient reports seeing Dr. Kinney throughout his years of psychiatric outpatient care while living in [place] and reports being prescribed Abilify 30mg/day, Celexa 10mg/day and Xanax 2mg/day. Patient then moved to [place] 6 years ago and was continued on Abilify 30mg, Celexa 10mg/day and Xanax 2mg HS. Patient came to [facility] for approximately two months. Told CASANDRA Mtz during his recent admission that he lost his bag which had his psychtropic medications but was resumed on his psychtropic medications while at [facility] for ten days secondary to an abscess to his right forearm. Reports that he is scheduled to see a psychiatrist at the [facility] on 04/16/19. When seen by CASANDRA Mtz on 03/30/19, he was prescribed Abilify 30 mg/day, Celexa 10 mg/pj and Benadryl 50 mg/hs prn for insomnia. Patient reports history of self mutilation by cutting but denies a history of suicide attempt. At present, denies experiencing psychotic symptoms, S/H ideations. However, reports feeling irritable and sleeping poorly Physical/Sexual Abuse/Trauma History: Denies history of emotional, physical or sexual abuse Mental Status Exam - Mental Status Exam Alert and Oriented to: Time, Place, Person Cognitive Function: Fair Patient Appearance: Well Groomed Mood: Irritable Affect: Appropriate Patient Behavior: Cooperative (superfially cooperative complaining of being tired) Speech Pattern: Clear Voice Loudness: Normal Thought Process: Intact, Goal Oriented Thought Disorder: Not Present Hallucinations: Denies Suicidal Ideation: Denies Insight/Judgement: Poor Sleep: Poorly Appetite: Good Muscle strength/Tone: Normal Gait/Station: Normal Psychiatric Findings - Problem List ([place] 1, 2,3) (1) Schizophrenia Current Visit: No Status: Chronic (2) Substance induced mood disorder Current Visit: No Status: Acute (3) Substance-induced sleep disorder Current Visit: Yes Status: Acute (4) Opioid dependence, uncomplicated Current Visit: No Status: Acute (5) Cocaine dependence Current Visit: Yes Status: Acute (6) Hepatitis C Current Visit: No Status: Chronic Qualifiers: Viral hepatitis chronicity: carrier Qualified Code(s): B18.2 - Chronic viral hepatitis C - Initial Treatment Plan Initial Treatment Plan: 1) Continue Abilify 30 mg po daily, Celexa 10 mg po daily. 2) Start Benadryl 50 mg po HS prn for insomnia. 3) Continue inpatient detoxification
[2019-04-07] MEDS ORDERED: METHADONE HCL 5 MG TABLET (FOR DETOX USE ONLY) PO ONE (10:00)
[2019-04-07] MEDS: PRENATAL VITAMINS W/ FOLIC ACID TABLET (FP) PO SCH (10:06)
[2019-04-07] MEDS: NICOTINE 14 MG/24 HOURS TOPICAL PATCH TD SCH (10:07)
[2019-04-07] MEDS: METHOCARBAMOL 500 MG TABLET PO PRN (10:09)
[2019-04-07] MEDS ORDERED: diphenhydrAMINE HCL 25 MG CAPSULE (FP) PO PRN (10:49)
--- NOTE | 2019-04-07 11:51 | PN ---
BHS COWS - Scale Resting Pulse: 1= [place] 81-100 Sweatin=Flushed/Facial Moisture Restless Observation: 1= Difficult to Sit Still Pupil Size: 1= Pupils >than Normal Bone or Joint Aches: 2= Severe Diffuse Aches Runny Nose/ Eye Tearin= Nasal Congestion GI Upset > 30mins: 2= Nausea/Diarrhea Tremor Observation of Outstretched Hands: 1= Tremor [place], Not Seen Yawning Observation: 0= None Anxiety or Irritability: 1=Feels Anxious/Irritable Goose Flesh Skin: 0=Smooth Skin COWS Score: 12 BHS Progress Note (SOAP) Subjective: interrupted sleep, sweats, shakes , diarrhea Objective: 04/07/19 11:48 Vital Signs M pt aox3 lying in bed in nad Temperature 98.6 F 04/07/19 09:23 Pulse Rate 83 04/07/19 09:23 Respiratory Rate 18 04/07/19 09:23 Blood Pressure 114/61 04/07/19 09:23 O2 Sat by Pulse Oximetry (%) Laboratory Tests 04/06/19 04/06/19 13:25 13:25 WBC 5.9 RBC 3.96 L Hgb 11.3 L Hct 34.6 L MCV 87.4 MCH 28.6 MCHC 32.7 RDW 16.5 H Plt Count 309 D MPV 8.2 Sodium 136 Potassium 4.5 Chloride 103 Carbon Dioxide 25 Anion Gap 7 L BUN 20.4 H Creatinine 1.0 Est GFR (CKD-EPI)AfAm 110.17 Est GFR (CKD-EPI)NonAf 95.05 Random Glucose 96 Calcium 8.5 Total Bilirubin 0.4 AST 56 H ALT 45 Alkaline Phosphatase 66 Total Protein 7.7 Albumin 3.4 04/07/19 11:49 04/07/19 11:51 Assessment: 04/07/19 11:51 withdrawal sx's Plan: cont. detox increase fluids imodium prn
[2019-04-07] MEDS: ARIPiprazole 15 MG TABLET PO SCH (12:22)
[2019-04-07] MEDS: CITALOPRAM HYDROBROMIDE 10 MG TABLET (FP) PO SCH (12:22)
--- NOTE | 2019-04-07 13:47 | PN ---
Teaching Attending Note Name of Resident: David Palomo ATTENDING PHYSICIAN STATEMENT I saw and evaluated the patient. I reviewed the resident's note and discussed the case with the resident. I agree with the resident's findings and plan as documented. SUBJECTIVE: Agree with subjective findings by resident OBJECTIVE: Agree with objective findings by resident ASSESSMENT AND PLAN: Agree with disposition as discussed with resident.
[2019-04-07] MEDS: BISMUTH SUBSALICYLATE 524 MG/30 ML UD PO PRN (19:43)
[2019-04-07] MEDS: THIAMINE HCL 100 MG TABLET (FP) PO SCH (21:18)
[2019-04-08] MEDS: CEPHALEXIN MONOHYDRATE 500 MG CAPSULE (UD) PO SCH (06:01)
[2019-04-08] MEDS: BISMUTH SUBSALICYLATE 524 MG/30 ML UD PO PRN (06:02)
[2019-04-08 09:01] VITALS: BP 119/70; PULSE 77; TEMP 97.9
[2019-04-08] MEDS: METHOCARBAMOL 500 MG TABLET PO PRN (09:33)
[2019-04-08] MEDS ORDERED: METHADONE HCL 10 MG TABLET (FOR DETOX USE ONLY) PO ONE (10:00)
[2019-04-08] MEDS: PRENATAL VITAMINS W/ FOLIC ACID TABLET (FP) PO SCH (10:23)
[2019-04-08] MEDS: ARIPiprazole 15 MG TABLET PO SCH (10:23)
[2019-04-08] MEDS: CITALOPRAM HYDROBROMIDE 10 MG TABLET (FP) PO SCH (10:23)
[2019-04-08] MEDS: NICOTINE 14 MG/24 HOURS TOPICAL PATCH TD SCH (10:24)
--- NOTE | 2019-04-08 11:41 | PN ---
S Progress Note Note: after medication pt insisted he wanted to leave. Pt states he wants to go home. Pt was advised about the risk of relapse, seizures, OD, and or loss. Pt chose to sign out AMA.
--- NOTE | 2019-04-08 11:42 | DS ---
[facility] Discharge Summary Admission Date: 04/06/19 Discharge Date: 04/08/19 - History Present History: Cocaine Dependence, Opioid Dependence - Physical Exam Results Vital Signs: Vital Signs Temperature 97.9 F 04/08/19 09:01 Pulse Rate 77 04/08/19 09:01 Respiratory Rate 18 04/08/19 09:01 Blood Pressure 119/70 04/08/19 09:01 O2 Sat by Pulse Oximetry (%) Pertinent Admission Physical Exam Findings: pt arrived in withdrawals Laboratory Tests 04/06/19 04/06/19 13:25 13:25 WBC 5.9 RBC 3.96 L Hgb 11.3 L Hct 34.6 L MCV 87.4 MCH 28.6 MCHC 32.7 RDW 16.5 H Plt Count 309 D MPV 8.2 Sodium 136 Potassium 4.5 Chloride 103 Carbon Dioxide 25 Anion Gap 7 L BUN 20.4 H Creatinine 1.0 Est GFR (CKD-EPI)AfAm 110.17 Est GFR (CKD-EPI)NonAf 95.05 Random Glucose 96 Calcium 8.5 Total Bilirubin 0.4 AST 56 H ALT 45 Alkaline Phosphatase 66 Total Protein 7.7 Albumin 3.4 pt aaox3 ambulating pt insisted on leaving and chose to sign out AMA. - Treatment Patient has Accepted a Rehab Referral to: pt declined rehab; referral provided - Medication Discharge Medications: Ambulatory Orders Aripiprazole [Abilify -] 30 mg PO DAILY 03/29/19 Citalopram Hydrobromide [Celexa -] 10 mg PO DAILY 03/29/19 Cephalexin [Keflex] 500 mg PO TID 04/06/19 - Diagnosis (1) Abscess of forearm, right Status: Acute (2) Cocaine dependence Status: Chronic Qualifiers: Substance use status: uncomplicated Qualified Code(s): F14.20 - Cocaine dependence, uncomplicated (3) Elevated aspartate aminotransferase level Status: Acute (4) IVDU (intravenous drug user) Status: Acute (5) Opioid dependence, uncomplicated Status: Chronic (6) Substance induced mood disorder Status: Acute (7) Substance-induced sleep disorder Status: Acute (8) Hepatitis C Status: Chronic Qualifiers: Viral hepatitis chronicity: carrier Qualified Code(s): B18.2 - Chronic viral hepatitis C (9) Schizophrenia Status: Chronic - AMA Did Patient Leave Against Medical Advice: Yes
[2019-04-09] MEDS ORDERED: METHADONE HCL 5 MG TABLET (FOR DETOX USE ONLY) PO ONE (06:00)
== END 2019-04-08 11:32 | disposition left against medical advice (07) | DRG 770 ==
LOC: YASAS 09:57 → Y6N 13:22
PROVIDERS: ADMIT Allergy & Immunology; ATTEND Allergy & Immunology
PROC: HZ2ZZZZ Detoxification Services for Substance Abuse Treatment (ICD-10-PCS; principal; 2019-04-06)
DX: F11.23 Opioid dependence with withdrawal (principal); F14.20 Cocaine dependence, uncomplicated; F19.282 Other psychoactive substance dependence with psychoactive substance-induced sleep disorder; F19.24 Other psychoactive substance dependence with psychoactive substance-induced mood disorder; F20.9 Schizophrenia, unspecified; F32.9 Major depressive disorder, single episode, unspecified; B18.2 Chronic viral hepatitis C
CPT/HCPCS: 36415; 80053; 85027